=== PATIENT | female | born 1950 | race Caucasian/White ===

== ENCOUNTER 2020-11-09 06:14 | Emergency (ER) | payer OTHER ==
[~2020-11-09] VITALS: Ht 160 cm; Wt 84.7 kg
[~2020-11-09 06:14] MED LIST: CHOL10002 PO; FLUT16SP2 NAS; ONDA4TAB7 PO; OXYC1TAB14 PO; [UNRECOGNIZED DRUG - CODE] PO
--- NOTE | 2020-11-09 06:33 | NUR ---
PT AMBULATED TO ROOM, AND IN NO ACUTE DISTRESS. PER PT SHE TOOK BY ACCIDENT HER HUSBANDS HTN MEDICATION. LISINOPRIL 20MG (THINKING IT WAS ONE OF HER VITAMINS), PT REALIZED THE ERROR AND ATTEMPTED TO THROW IT UP, BUT IT HAD ALREADY DISSOLVED. MD TO BEDSIDE TO EVAL PT. PT PLACED ON CR MONITOR, AND BP AND O2 SAT PROBE. PER MD WE WILL OBSERVE PT FOR THE NEXT 30 MIN TO SEE IF SHE IS IN ANY WAY SYMPTOMATIC FROM THE HTN MEDS. PT A&OX4, NO COMPLAINTS OF PAIN OR DISCOMFORT, NO LIGHTHEADEDNESS OR DIZZINESS EITHER.
--- NOTE | 2020-11-09 06:45 | NUR ---
REPORT TO FALLON VELASCO.
[2020-11-09 07:09] VITALS: BP 124/48
--- NOTE | 2020-11-09 07:18 | NUR ---
PT REC'VD DISCHARGE INSTRUCTIONS AND EDUCATION. PT HAD NO FURTHER QUESTIONS.
--- NOTE | 2020-11-09 07:23 | NUR ---
PT AMBULATED TO FL AREA, STEADY GAIT.
== END 2020-11-09 07:45 | disposition home or self-care (01) ==
LOC: ED 07:00
DX: T46.4X1A Poisoning by angiotensin-converting-enzyme inhibitors, accidental (unintentional), initial encounter (principal); Y92.9 Unspecified place or not applicable
CPT/HCPCS: 99281